=== PATIENT | male | born 1990 | race Caucasian/White ===

== ENCOUNTER 2021-10-21 18:36 | Emergency (ER) | payer SELFPAY ==
[2021-10-21] MEDS ORDERED: LIDOCAINE VISCOUS 2% SOLN 15 ML UDC ONE (19:54)
--- NOTE | 2021-10-21 20:21 | ER ---
Nurse's Notes [facility] Name: Yanick Hammer Age: 31 yrs Sex: Male : 1990 Arrival Date: 10/21/2021 Time: 18:39 Bed 10 Private MD: Modesta Barroso F Diagnosis: Acute tonsillitis, unspecified Presentation: 10/21 18:44 Chief complaint: Patient states: Thursday with sore throat, L ear pain, GOMEZ, fever 100.6 ll1 at home. Coronavirus screen: Vaccine status: Patient reports being unvaccinated. Client denies travel out of the [place] in the last 14 days. chills, congestion, diarrhea, fever, headache, sore throat, Client presents with at least one sign or symptom that may indicate coronavirus-19. Standard/surgical mask placed on the client. Ebola Screen: Patient denies travel to an Ebola-affected area in the 21 days before illness onset. Initial Sepsis Screen: Does the patient meet any 2 criteria? No. Patient's initial sepsis screen is negative. Does the patient have a suspected source of infection? No. Patient's initial sepsis screen is negative. Risk Assessment: Do you want to hurt yourself or someone else? Patient reports no desire to harm self or others. Onset of symptoms was October 18, 2021. 18:44 Method Of Arrival: Ambulatory ll1 18:44 Acuity: THUAN 4 ll1 Triage Assessment: 18:48 General: Appears in no apparent distress. Behavior is calm, cooperative, appropriate ll1 for age. Pain: Complains of pain in throat Quality of pain is described as aching. EENT: Reports nasal congestion pain when swallowing. Neuro: No deficits noted. Cardiovascular: No deficits noted. Respiratory: No deficits noted. Historical: - Allergies: 18:47 No Known Allergies; ll1 - PMHx: 18:47 None; ll1 - PSHx: 18:47 None; ll1 - Immunization history:: Client reports having NOT received the Covid vaccine. - Social history:: Smoking status: Patient reports the use of cigarette tobacco products, smokes one pack cigarettes per day. Screenin:43 Abuse screen: Denies threats or abuse. Denies injuries from another. Nutritional hb screening: No deficits noted. Tuberculosis screening: No symptoms or risk factors identified. Fall Risk None identified. Assessment: 19:44 General: Appears in no apparent distress. Behavior is calm, cooperative. Pain: Pain hb currently is 4 out of 10 on a pain scale. Neuro: Level of Consciousness is awake, alert, obeys commands, Oriented to person, place, time, situation. Cardiovascular: Patient's skin is warm and dry. Respiratory: Respiratory effort is even, unlabored, Respiratory pattern is regular, symmetrical. GI: No signs and/or symptoms were reported involving the gastrointestinal system. : No signs and/or symptoms were reported regarding the genitourinary system. EENT: Reports bilat ear pain and sore throat. Derm: Skin is pink, warm \T\ dry. Vital Signs: 18:44 BP 133 / 89; Pulse 100; Resp 17; Temp 99.4; Pulse Ox 100% ; Weight 68.95 kg; Height 6 ll1 ft. 3 in. (190.50 cm); Pain 4/10; 20:32 BP 129 / 85; Pulse 92; Resp 18; Pulse Ox 97% ; Pain 2/10; kb3 18:44 Body Mass Index 19.00 (68.95 kg, 190.50 cm) ll1 ED Course: 18:39 Patient arrived in ED. mr 18:39 Modesta Barroso MD is Private Physician. mr 18:46 Triage completed. ll1 18:47 Arm band placed on. ll1 18:49 Viktor Glover PA is PHCP. cp 18:49 Andrea Hoyos MD is Attending Physician. cp 19:43 Cherie Sharpe, BRANDT is Primary Nurse. hb 19:43 Patient has correct armband on for positive identification. hb 20:40 Patient did not have IV access during this emergency room visit. kb3 20:44 No provider procedures requiring assistance completed. kb3 Administered Medications: 19:48 Drug: Viscous Lidocaine Liquid (4 %) 5 ml Route: Mucous Membrane; hb 20:35 Follow up: Response: No adverse reaction; Pain is decreased kb3 20:35 Drug: Augmentin (Amoxicillin-Clavulanate) 875 mg Route: PO; kb3 20:46 Follow up: Response: Medication administered at discharge. kb3 Medication: 19:43 VIS not applicable for this client. hb Outcome: 20:20 Discharge ordered by . cp 20:35 Discharge instructions given to patient, significant other, Instructed on discharge kb3 instructions, follow up and referral plans. medication usage, Demonstrated understanding of instructions, follow-up care, medications, Prescriptions given X 3. 20:44 Discharged to home kb3 20:44 Condition: stable 20:47 Patient left the ED. kb3 Signatures: Marta PattersonViktor PA PA cp Baxter, Heather, RN RN hb Skylar Salazar RN RN ll1 Raine Saldana RN RN kb3 Corrections: (The following items were deleted from the chart) 18:47 18:44 Pulse 100bpm; Resp 17bpm; Pulse Ox 100%; Temp 99.4F; 68.95 kg; Height 6 ft. 3 ll1 in.; BMI: 19.0; Pain 4/10; ll1
--- NOTE | 2021-10-21 20:21 | EDPHYS ---
Physician Documentation [facility] Name: Yanick Hammer Age: 31 yrs Sex: Male : 1990 Arrival Date: 10/21/2021 Time: 18:39 Bed 10 Private MD: Modesta Barroso F ED Physician Andrea Hoyos HPI: 10/21 19:00 This 31 yrs old Male presents to ER via Ambulatory with complaints of Sore Throat, Ear cp Pain, Headache. 19:00 The patient presents with sore throat, dysphagia, of solids. The patient describes cp throat pain as constant. Onset: The symptoms/episode began/occurred 3 day(s) ago. Severity of symptoms: in the emergency department the symptoms are unchanged, despite home interventions. Associated signs and symptoms: Pertinent positives: dysphagia, earache, headache, Pertinent negatives cough, fever, nausea, vomiting. Historical: - Allergies: 18:47 No Known Allergies; ll1 - PMHx: 18:47 None; ll1 - PSHx: 18:47 None; ll1 - Immunization history:: Client reports having NOT received the Covid vaccine. - Social history:: Smoking status: Patient reports the use of cigarette tobacco products, smokes one pack cigarettes per day. ROS: 19:04 Eyes: Negative for injury, pain, redness, and discharge. cp 19:04 Constitutional: Negative for body aches, chills, fever, poor PO intake. 19:04 ENT: Positive for difficulty swallowing, ear pain, sore throat, Negative for drainage from ear(s), difficulty handling secretions. 19:04 Respiratory: Negative for cough, shortness of breath, wheezing. 19:04 Abdomen/GI: Negative for abdominal pain, vomiting, diarrhea, constipation. 19:04 Back: Negative for pain at rest, pain with movement. 19:04 Skin: Negative for rash. 19:04 Neuro: Positive for headache, Negative for altered mental status, weakness. 19:04 All other systems are negative. Exam: 19:06 Head/Face: Normocephalic, atraumatic. cp 19:06 Constitutional: The patient appears in no acute distress, alert, awake, non-toxic, well developed, well nourished. 19:06 Eyes: Periorbital structures: appear normal, Conjunctiva: normal, no exudate, no injection, Sclera: no appreciated abnormality, Lids and lashes: appear normal, bilaterally. 19:06 ENT: External ear(s): are unremarkable, Ear canal(s): are normal, clear, TM's: dullness, bilaterally, Nose: is normal, Mouth: Lips: moist, Oral mucosa: moist, Posterior pharynx: Airway: no evidence of obstruction, patent, Tonsils: with erythema, left tonsil enlarged, no exudate, Uvula: midline, erythema, that is marked, exudate, is not appreciated, Voice: is normal. 19:06 Neck: ROM/movement: is normal, is supple, without pain, no range of motions limitations, no meningismus, Lymph nodes: lymphadenopathy is appreciated, anterior cervical nodes. 19:06 Chest/axilla: Inspection: normal. 19:06 Cardiovascular: Rate: tachycardic. 19:06 Respiratory: the patient does not display signs of respiratory distress, Respirations: normal, no use of accessory muscles, no retractions, labored breathing, is not present. Vital Signs: 18:44 BP 133 / 89; Pulse 100; Resp 17; Temp 99.4; Pulse Ox 100% ; Weight 68.95 kg; Height 6 ll1 ft. 3 in. (190.50 cm); Pain 4/10; 20:32 BP 129 / 85; Pulse 92; Resp 18; Pulse Ox 97% ; Pain 2/10; kb3 18:44 Body Mass Index 19.00 (68.95 kg, 190.50 cm) ll1 MDM: 19:25 Patient medically screened. 20:20 Data reviewed: vital signs, nurses notes, lab test result(s). cp 20:20 Differential diagnosis: group A strep tonsillitis, peritonsillar abscess pharyngitis, cp tonsillitis, upper respiratory infection, uvulitis. Counseling: I had a detailed discussion with the patient and/or guardian regarding: the historical points, exam findings, and any diagnostic results supporting the discharge/admit diagnosis, lab results, to return to the emergency department if symptoms worsen or persist or if there are any questions or concerns that arise at home. 10/21 18:50 Order name: Flu; Complete Time: 19:49 ll1 10/21 19:49 Interpretation: Reviewed. 10/21 18:50 Order name: COVID-19 SARS RT PCR (Document "Date of Onset" if Symptomatic); Complete ll1 Time: 20:26 10/21 18:50 Order name: Strep; Complete Time: 19:49 ll1 10/21 19:49 Interpretation: Reviewed. cp 10/21 19:48 Order name: Throat Culture EDMS Administered Medications: 19:48 Drug: Viscous Lidocaine Liquid (4 %) 5 ml Route: Mucous Membrane; hb 20:35 Follow up: Response: No adverse reaction; Pain is decreased kb3 20:35 Drug: Augmentin (Amoxicillin-Clavulanate) 875 mg Route: PO; kb3 20:46 Follow up: Response: Medication administered at discharge. kb3 Disposition Summary: 10/21/21 20:20 Discharge Ordered Location: Home cp Problem: new cp Symptoms: have improved cp Condition: Stable cp Diagnosis - Acute tonsillitis, unspecified cp Followup: cp - With: Private Physician - When: 2 - 3 days - Reason: Worsening of condition Discharge Instructions: - Discharge Summary Sheet cp - Tonsillitis cp Forms: - Medication Reconciliation Form cp - Thank You Letter cp - Antibiotic Education cp - Prescription Opioid Use cp Prescriptions: - Lidocaine Viscous - take 5 milliliter by ORAL route every 4-6 hours; 1 bottle; Refills: 0, Product cp Selection Permitted - Augmentin 875-125 mg Oral Tablet - take 1 tablet by ORAL route every 12 hours for 10 days; 20 tablet; Refills: 0, cp Product Selection Permitted - Ibuprofen 800 mg Oral Tablet - take 1 tablet by ORAL route every 8 hours As needed take with food; 30 tablet; cp Refills: 0, Product Selection Permitted Addendum: 10/22/2021 21:46 Co-signature as Attending Physician, Andrea Hoyos MD. r n Signatures: Dispatcher [employer] EDMS Andrea Hoyos MD MD rn Page, Corey, PA PA cp Cherie Sharpe RN Skylar Berger RN RN ll1 Raine Saldana RN RN kb3
[2021-10-21] MEDS ORDERED: AMOX/K CLAV 875 MG TAB ONE (20:39)
[2021-10-21 22:57] VITALS: TEMP 99.4
[2021-10-21 22:59] VITALS: BP 129/85; O2SAT 97
== END 2021-10-21 20:47 | disposition home or self-care (01) ==
LOC: ER 18:36
DX: J03.90 Acute tonsillitis, unspecified (principal); Z20.822 Contact with and (suspected) exposure to COVID-19; F17.210 Nicotine dependence, cigarettes, uncomplicated
CPT/HCPCS: 87070; 87081; 87804; 99283; U0003

== ENCOUNTER 2021-10-23 02:08 | Emergency (ER) | payer SELFPAY ==
--- NOTE | 2021-10-23 02:49 | EDPHYS ---
Physician Documentation [facility] Name: Yanick Hammer Age: 31 yrs Sex: Male : 1990 Arrival Date: 10/23/2021 Time: 02:11 Bed 8 Private MD: ED Physician Andrea Hoyos HPI: 10/23 02:44 This 31 yrs old Male presents to ER via Ambulatory with complaints of Sore Throat, Ear rn Pain. 02:44 The patient presents with sore throat. The patient describes throat pain as raw, rn scratchy. Onset: The symptoms/episode began/occurred 2 day(s) ago. Severity of symptoms: At their worst the symptoms were moderate, in the emergency department the symptoms have improved. Modifying factors: The symptoms are alleviated by cough drops and numbing medication the symptoms are aggravated by swallowing, Patient's oral intake status: good. Associated signs and symptoms: Pertinent positives: Sore throat Pertinent negatives chest pain, fever, shortness of breath. The patient has not experienced similar symptoms in the past. The patient has been recently seen by a physician: The patient has been recently seen at the [facility] Emergency Department. Pt seen and treated for tonsillitis recently, put on abx and lidocaine, reports feels like swelling in left neck under jaw has increased and is more painful. No difficulty swallowing. No pain or swelling in back of mouth or throat. No sob. . Historical: - Allergies: 02:30 No Known Allergies; jb4 - PMHx: 02:30 None; jb4 - PSHx: 02:30 None; jb4 - Immunization history:: Adult Immunizations up to date. - Social history:: Smoking status: Patient reports the use of cigarette tobacco products, smokes one pack cigarettes per day. - Family history:: not pertinent. - Hospitalizations: : No recent hospitalization is reported. ROS: 02:44 Constitutional: Negative for fever, chills, and weight loss, Eyes: Negative for injury, rn pain, redness, and discharge, ENT: + sore throat Neck: + left neck pain Exam: :44 Constitutional: This is a well developed, well nourished patient who is awake, alert, rn and in no acute distress. Head/Face: Normocephalic, atraumatic. ENT: + left tonsillitis with mild swelling, no evidence of peritonsillar abscess, uvula midline Neck: + tender left sided lymphadenopathy without crepitus or overlying skin changes. Cardiovascular: Regular rate and rhythm. No pulse deficits. Respiratory: No increased work of breathing, no retractions or nasal flaring. Neuro: Awake and alert, GCS 15 Vital Signs: 02:26 BP 125 / 83; Pulse 67; Resp 16; Temp 97.9(O); Pulse Ox 99% on R/A; Weight 68.95 kg (R); jb4 Height 6 ft. 3 in. (190.50 cm) (R); Pain 5/10; 03:00 BP 115 / 73; Pulse 73; Resp 16; Pulse Ox 100% on R/A; jb4 02:26 Body Mass Index 19.00 (68.95 kg, 190.50 cm) jb4 MDM: 02:11 Patient medically screened. rn 02:44 Differential diagnosis: pharyngitis, tonsillitis, lymphadenitis. Data reviewed: vital rn signs, nurses notes, old medical records, and as a result, I will discharge patient. Counseling: I had a detailed discussion with the patient and/or guardian regarding: the historical points, exam findings, and any diagnostic results supporting the discharge/admit diagnosis, the need for outpatient follow up, to return to the emergency department if symptoms worsen or persist or if there are any questions or concerns that arise at home. Response to treatment: the patient's symptoms have mildly improved after treatment, and as a result, I will discharge patient. Special discussion: I discussed with the patient/guardian in detail that at this point there is no indication for admission to the hospital. It is understood, however, that if the symptoms persist or worsen the patient needs to return immediately for re-evaluation. Based on the history and exam findings, there is no indication for further emergent testing or inpatient evaluation. I discussed with the patient/guardian the need to see the ENT specialist for further evaluation of the symptoms. 10/23 02:40 Order name: IV Start; Complete Time: 02:48 rn Administered Medications: 02:58 Drug: Decadron - Dexamethasone 10 mg Route: IVP; Site: right antecubital; 4 03:30 Follow up: Response: No adverse reaction [facility] [place] 02:58 Drug: Ketorolac 30 mg Route: IVP; Site: right antecubital; jb4 03:30 Follow up: Response: No adverse reaction; Marked relief of symptoms jb4 02:59 Drug: Clindamycin 600 mg Route: IVPB; Infused Over: 30 mins; Site: right antecubital; jb4 03:29 Follow up: Response: No adverse reaction; IV Status: Completed infusion jb4 Disposition Summary: 10/23/21 02:48 Discharge Ordered Location: Home rn Problem: new rn Symptoms: have improved rn Condition: Stable rn Diagnosis - Acute lymphadenitis of face, head and neck rn Followup: rn - With: Vivi Wolff MD - When: As needed - Reason: Recheck today's complaints, Re-evaluation by your physician Discharge Instructions: - Discharge Summary Sheet rn - Lymphadenopathy rn Forms: - Medication Reconciliation Form rn - Thank You Letter rn - Antibiotic yarn examiner skeins - Prescription Opioid Use rn - Work release form jb4 Prescriptions: - Clindamycin HCl 300 mg Oral Capsule - take 1 capsule by ORAL route every 6 hours for 10 days; 40 capsule; Refills: 0, rn Product Selection Permitted - Medrol (Marcos) 4 mg Oral Tablets, Dose Pack - take 1 tablet by ORAL route as directed - follow package instructions; 1 rn packet; Refills: 0, Product Selection Permitted Signatures: Andrea Hoyos MD MD rn Bryson, James, RN RN jb4
--- NOTE | 2021-10-23 02:49 | ER ---
Nurse's Notes [facility] Name: Yanick Hammer Age: 31 yrs Sex: Male : 1990 Arrival Date: 10/23/2021 Time: 02:11 Bed 8 Private MD: Diagnosis: Acute lymphadenitis of face, head and neck Presentation: 10/23 02:26 Chief complaint: Patient states: I was here about 2 days ago for throat pain and jb4 swelling. I have gotten my scripts filled and nothing has helped. The swelling is getting worse and so is the pain. Coronavirus screen: At this time, the client does not indicate any symptoms associated with coronavirus-19. Ebola Screen: No symptoms or risks identified at this time. Initial Sepsis Screen: Does the patient meet any 2 criteria? No. Patient's initial sepsis screen is negative. Does the patient have a suspected source of infection? No. Patient's initial sepsis screen is negative. Risk Assessment: Do you want to hurt yourself or someone else? Patient reports no desire to harm self or others. Onset of symptoms was October 23, 2021. Transition of care: patient was not received from another setting of care. 02:26 Method Of Arrival: Ambulatory jb4 02:26 Acuity: THUAN 3 jb4 Historical: - Allergies: 02:30 No Known Allergies; jb4 - PMHx: 02:30 None; jb4 - PSHx: 02:30 None; jb4 - Immunization history:: Adult Immunizations up to date. - Social history:: Smoking status: Patient reports the use of cigarette tobacco products, smokes one pack cigarettes per day. - Family history:: not pertinent. - Hospitalizations: : No recent hospitalization is reported. Screenin:30 Abuse screen: Denies threats or abuse. Nutritional screening: No deficits noted. jb4 Tuberculosis screening: No symptoms or risk factors identified. Fall Risk None identified. Assessment: 02:30 General: Appears in no apparent distress. uncomfortable, Behavior is calm, cooperative, jb4 appropriate for age. Pain: Complains of pain in left aspect of posterior pharynx Pain does not radiate. Pain currently is 5 out of 10 on a pain scale. at worst was 8 out of 10 on a pain scale. Neuro: Level of Consciousness is awake, alert, obeys commands, Oriented to person, place, time, situation. Cardiovascular: Patient's skin is warm and dry. Respiratory: Airway is patent Respiratory effort is even, unlabored, Respiratory pattern is regular, symmetrical. EENT: Throat is reddened has enlarged tonsils on left with gag reflex present. Derm: Skin is intact, Skin is pink, warm \T\ dry. Musculoskeletal: Circulation, motion, and sensation intact. Range of motion: intact in all extremities. 03:36 Reassessment: Patient appears in no apparent distress at this time. Patient and/or jb4 family updated on plan of care and expected duration. Pain level reassessed. Patient is alert, oriented x 3, equal unlabored respirations, skin warm/dry/pink. Vital Signs: 02:26 BP 125 / 83; Pulse 67; Resp 16; Temp 97.9(O); Pulse Ox 99% on R/A; Weight 68.95 kg (R); jb4 Height 6 ft. 3 in. (190.50 cm) (R); Pain 5/10; 03:00 BP 115 / 73; Pulse 73; Resp 16; Pulse Ox 100% on R/A; jb4 02:26 Body Mass Index 19.00 (68.95 kg, 190.50 cm) jb4 ED Course: 02:11 Patient arrived in ED. bp1 02:11 Andrea Hoyos MD is Attending Physician. rn 02:16 Phill Monsalve, BRANDT is Primary Nurse. jb4 02:30 Triage completed. jb4 02:30 Arm band placed on right wrist. jb4 02:30 Patient has correct armband on for positive identification. Bed in low position. Call jb4 light in reach. Side rails up X 1. Client placed on continuous cardiac and pulse oximetry monitoring. NIBP monitoring applied. 02:45 Inserted saline lock: 18 gauge in right antecubital area, using aseptic technique. jb4 02:47 Vivi Wolff MD is Referral Physician. rn 03:00 No provider procedures requiring assistance completed. IV discontinued, intact, jb4 bleeding controlled, No redness/swelling at site. Pressure dressing applied. Administered Medications: 02:58 Drug: Decadron - Dexamethasone 10 mg Route: IVP; Site: right antecubital; jb4 03:30 Follow up: Response: No adverse reaction jb4 02:58 Drug: Ketorolac 30 mg Route: IVP; Site: right antecubital; jb4 03:30 Follow up: Response: No adverse reaction; Marked relief of symptoms jb4 02:59 Drug: Clindamycin 600 mg Route: IVPB; Infused Over: 30 mins; Site: right antecubital; jb4 03:29 Follow up: Response: No adverse reaction; IV Status: Completed infusion jb4 Medication: 02:30 VIS not applicable for this client. jb4 Outcome: 02:48 Discharge ordered by . rn 03:37 Patient left the ED. jb4 Signatures: Andrea Hoyos MD MD rn Bryson, James, RN RN jb4 [place], [facility]
[2021-10-23] MEDS ORDERED: dexAMETHasone 10 MG/ML VIAL ONE (02:57)
[2021-10-23] MEDS ORDERED: CLINDAMYCIN 600MG/D5W 600 MG/50 ML BAG IV ONE (02:58)
[2021-10-23] MEDS ORDERED: KETOROLAC 30 MG/ML INJ ONE (02:58)
[2021-10-23 04:07] VITALS: TEMP 97.9
[2021-10-23 04:15] VITALS: BP 115/73; O2SAT 100
== END 2021-10-23 03:37 | disposition home or self-care (01) ==
LOC: ER 02:08
DX: L04.0 Acute lymphadenitis of face, head and neck (principal); F17.210 Nicotine dependence, cigarettes, uncomplicated
CPT/HCPCS: 96365; 96375; 99283; J1100